=== PATIENT | male | born 1995 | race Caucasian/White ===

== ENCOUNTER 2017-05-22 22:01 | Emergency (ER) | payer SELFPAY ==
[2017-05-22 22:08] VITALS: BP 164/97; BMI 48.8
--- NOTE | 2017-05-22 23:27 | DR.GENAD ---
HPI - PCP Primary Care Physician: NFD - Complaint/Symptoms Chief Complaint:: PT STATES" MY HEART FEELS LIKE ITS RUNNING AWAY WITH ME I FEEL SHORT OF BREATH AND TIGHTNESS IN CHEST" - Source History Provided: Patient - Mode of Arrival Mode of Arrival: Ambulatory - Timing Onset of Chief Complaint: 05/22/17 <MARIANELA SALAZAR - Last Filed: 05/22/17 23:16> - HPI Comment HPI Comment: Pt feels SOB with racing heart and some chest pressure; pt feels 'restless'. 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 Currently being treated for strep with amox x 3 days. HR 105 on arrival. Pt denies prior episodes <GIRISH MACK - Last Filed: 05/23/17 00:47> PMH - PMH Past Medical History: No Past Surgical History: No - Family History History of Family Medical Conditions: Yes Family Medical History: Heart Failure, Hypertension - Social History Alcohol Use: None Do you use any recreational Drugs:: No Lives With: Family Lives Where: Home - infectious screening In the last 2 months have you had wt loss of >10#?: NO Have you had fever, night sweats or hemotysis?: No Have you traveled outside the country in the last 6 months?: No Isolation: Standard <MARIANELA SALAZAR - Last Filed: 05/22/17 23:16> - PMH Past Medical History Comment: no cardiac hx. Concurrent strep tx with amox <GIRISH MACK - Last Filed: 05/23/17 00:47> ROS - Review of Systems Constitutional: Fever (pt stetes 'low grade fever') Eyes: No Symptoms Reported ENTM: No Symptoms Reported, Throat Pain (has strep) Respiratoy: Short of Breath Cardiovascular: Chest Pain, Palpitations Gastrointestinal/Abdominal: No Symptoms Reported Genitourinary: No Symptoms Reported Neurological: Other (feels 'restless) Musculoskeletal: No Symptoms Reported Integumentary: No Symptoms Reported Hematologic/Lymphatic: No Symptoms Reported Endocrine: No Symptoms Reported Psychiatric: No Symptoms Reported All Other Systems: Reviewed and Negative <GIRISH MACK - Last Filed: 05/23/17 00:47> PE - General Limitations: No Limitations General Appearance: Alert, In No Apparent Distress, Anxious, Obese (obese, BMI 49) - Head Head Exam: Normal Inspection - Eyes Eye exam: Normal Appearance - ENT ENT Exam: Other (posterior oropharynx red ) Throat Exam: Tonsillar Erythema - Neck Neck Exam: Normal Inspection, Full ROM, Trachea Midline. negative: Lymphadenopathy - Chest Chest Inspection: Normal Inspection, Symmetric Chest Wall Rise. negative: Tenderness - Respiratory Respiratory Exam: Bilateral Clear to Auscultation - Cardiovascular Cardiovascular Exam: Tachycardia, Normal Heart Sounds (HR 105 on arrival, HR 87 on EKG at 11:40pm). negative: Systolic Murmur, Diastolic Murmur, Rubs, Gallop, Clicks - Abdominal Exam Abdominal Exam: Normal Inspection, Normal Bowel Sounds, Soft - Extremities Extremities Exam: Normal Inspection, Full ROM. negative: Edema - Neurologic Neurological Exam: Alert, Oriented X3 - Psychiatric Psychiatric Exam: Normal Affect, Anxious - Skin Skin Exam: Warm, Dry, Intact <GIRISH MACK - Last Filed: 05/23/17 00:47> - Vital Signs Vitals: Temperature 98.8 F Pulse Rate 105 Respiratory Rate 22 Blood Pressure 164/97 O2 Sat by Pulse Oximetry 100 ROR - Labs Reviewed Laboratory Results Reviewed?: Yes (cardiacs all normal) - EKG Compared to prior EKG Dated: 05/22/17 (no priors) Rate: 87 (normal EKG) Cosby: Normal Rhythm: NSR Block: None Hypertrophy: None ST: Normal <GIRISH MACK - Last Filed: 05/23/17 00:47> - Labs Reviewed Laboratory: Creatine Kinase 240 Units/L (39-308) 05/22/17 23:44 CK-MB (CK-2) 1.4 ng/mL (0-4.0) 05/22/17 23:44 CK/CKMB % Calc 0.6 % (<4) 05/22/17 23:44 Troponin I < 0.02 ng/mL (0-1.5) 05/22/17 23:44 <MARIANELA SALAZAR - Last Filed: 05/22/17 23:16> <GIRISH MACK - Last Filed: 05/23/17 00:47> - Diagnosis Discharge Problem: Sinus tachycardia - Discharge Plan Disposition: HOME, SELF-CARE Condition: Stable - Follow ups/Referrals Follow ups/Referrals: NFD,None [Primary Care Provider] - 3 days - Instructions Instructions: Sinus Tachycardia Additional Instructions: FOLLOW UP WITH YOUR PRIMARY POOL FINISHER AND OR RETURN TO ER IF NEEDED. Additional Notes - Additional Notes Additional Notes: Told pt to establish with primary care, may need Holter/Event monitor for dx here. Pt reassured with normal workup <GIRISH MACK - Last Filed: 05/23/17 00:47>
[2017-05-23 00:14] LABS: CKMB % 0.6 % (<4); CREATINE KINASE 240 Units/L (39-308); CREATINE KINASE MB 1.4 ng/mL (0-4.0); TROPONIN I < 0.02 ng/mL (0-1.5)
== END 2017-05-23 00:47 | disposition home or self-care (01) ==
LOC: ER 22:11
DX: R00.0 Tachycardia, unspecified (principal)
CPT/HCPCS: 36415; 82550; 82553; 84484; 93005; 93010; 99282